=== PATIENT | female | born 1970 | race Caucasian/White ===

== ENCOUNTER 2020-05-16 20:44 | Emergency (ER) | payer BC ==
[~2020-05-16] VITALS: Ht 165.1 cm; Wt 74.8 kg
[2020-05-16 20:44] VITALS: BP_SYST 147
--- NOTE | 2020-05-16 21:00 | NUR ---
Patient to ER bed 3 to gown for evaluation. Side rails up.
--- NOTE | 2020-05-16 21:01 | NUR ---
pt a&o x4 from home c/o of headache for 3 days. 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 pt said doc reported she had blisters on her tonsils. pt was nauseous earlier but denies being nauseous now. pt denies sore throat, trouble breathing, trouble swallowing. pt last dose of tylenol was at 4pm today. pt rates her headache 8/10
--- NOTE | 2020-05-16 21:01 | NUR ---
pts tonsils appear to be red. pt denies any pain.
--- NOTE | 2020-05-16 21:05 | NUR ---
ER Dr. Romo at bedside examining patient.
[2020-05-16] MEDS ORDERED: METOCLOPRAMIDE HCL 10 MG TABLET PO ONE (21:15)
[2020-05-16] MEDS ORDERED: DIPHENHYDRAMINE HCL 25 MG CAPSULE PO ONE (21:15)
--- NOTE | 2020-05-16 21:25 | NUR ---
pt blood sugar is 110. aware.
--- NOTE | 2020-05-16 21:57 | NUR ---
pt blood pressure 130/83 after administration of reglan and benadryl. md aware.
--- NOTE | 2020-05-16 22:12 | NUR ---
patient blood pressure 159/103. aware. order received from Dr. Romo for 0.1mg of clonidine.
[2020-05-16] MEDS ORDERED: cloNIDine HCL 0.1 MG TABLET PO ONE (22:30)
--- NOTE | 2020-05-16 22:40 | NUR ---
pt reports she is still experiencing 8/10 throbbing pain, headache.
[2020-05-16] MEDS ORDERED: HYDROcodone/ACETAMIN 7.5-325 MG TAB PO ONE (22:45)
--- NOTE | 2020-05-16 22:57 | NUR ---
patient blood pressure 139/88 after administration of clonidine. md moore
[2020-05-16 23:16] VITALS: BP_SYST 139
--- NOTE | 2020-05-16 23:16 | NUR ---
Patient given written and verbal discharge instructions and verbalizes understanding. ER MD discussed with patient the results and treatment provided. Patient in stable condition. ID arm band removed. NO Rx given. Patient educated on pain management and to follow up with PMD. Pain Scale 5/10. Opportunity for questions provided and answered. Medication side effect fact sheet provided.
== END 2020-05-16 23:16 | disposition home or self-care (01) ==
LOC: SED 20:44
DX: R51 Headache (principal); R11.0 Nausea; E11.9 Type 2 diabetes mellitus without complications; E03.9 Hypothyroidism, unspecified; Z88.6 Allergy status to analgesic agent
CPT/HCPCS: 82962; 99284; J8597; Q0163